=== PATIENT | male | born 1975 ===

== ENCOUNTER 2025-02-24 07:00 | Day surgery (SDC) | payer OTHER ==
[~2025-02-24 07:00] MED LIST: ATORVASTATIN CA40 MG PO; CLONAZEPAM0.5 MG PO; COZAAR100 MG PO; PROZAC20 MG PO; TOPROL XL25 M1 PO
[2025-02-24] MEDS ORDERED: CEFTRIAXONE SODIUM 2,000 MG VIAL IV ONE (08:30)
[2025-02-24] MEDS ORDERED: METRONIDAZOLE/SODIUM CHLORIDE 500 MG/100 ML PIGGYBACK IV ONE (08:30)
[2025-02-24] MEDS ORDERED: HEMOSTATIC MATRIX 1 KIT KIT TOP ONE (08:30)
[2025-02-24] MEDS ORDERED: POVIDONE-IODINE 118 ML BOTT TOP ONE (08:30)
[2025-02-24] MEDS ORDERED: DIBUCAINE 15 GM OINT..GM. TUBE RECTAL ONE (08:30)
[2025-02-24] MEDS ORDERED: RECTICARE30 GM TOP (08:57)
[2025-02-24] MEDS ORDERED: PERCOCET 5-3251 EACH PO (08:57)
[2025-02-24] MEDS ORDERED: MORPHINE SULFATE 4 MG/ML VIAL IV ONE ×3 (11:30→15:55)
== END 2025-02-24 16:25 | disposition home or self-care (01) ==
LOC: CIR.AMB 07:00
PROVIDERS: ATTEND Surgery
DX: K64.2 Third degree hemorrhoids (principal); K64.4 Residual hemorrhoidal skin tags; Z88.2 Allergy status to sulfonamides